=== PATIENT | male | born 1985 | race Caucasian/White ===

== ENCOUNTER 2019-01-21 11:27 | Emergency (ER) | payer OTHER, SELFPAY ==
[2019-01-21 11:27] VITALS: BP 109/89; PULSE 100; RESP 16; TEMP 36.7; O2SAT 97; BMI 29.8
--- NOTE | 2019-01-21 11:40 | CT_ITS ---
STUDY: CT LUMBAR SPINE WITHOUT CONTRAST REASON FOR EXAM: Male, 33 years old. Worsening back pain. History of back surgery. RADIATION DOSAGE (If Supplied By Facility): CTDIvol = ( 23.34 ) mGy, DLP = ( 1415.62 ) mGycm TECHNIQUE: The patient was scanned in a multi detector CT scanner. High resolution transaxial imaging was performed. Images were obtained from T12 to the lower sacrum. Sagittal and coronal images were reconstructed. Individualized dose optimization techniques were used for this CT. COMPARISON: None FINDINGS: Normal lumbar lordosis. There is no substantial scoliosis. Normal vertebrae of the lumbar spine. There is a nonspecific sclerotic lesion in the right L5 pedicle, likely bone I island. There is no osseous destruction. L1-2: Normal endplates. Normal disc height and morphology. Normal bilateral facet joints. Normal central canal and bilateral lateral recesses. Normal bilateral intervertebral neural foramina. L2-3: Normal endplates. Normal disc height and morphology. Normal bilateral facet joints. Normal central canal and bilateral lateral recesses. Normal bilateral intervertebral neural foramina. L3-4: Normal endplates. Normal disc height and morphology. Normal bilateral facet joints. Normal central canal and bilateral lateral recesses. Normal bilateral intervertebral neural foramina. L4-5: Normal endplates. Normal disc height and morphology. Normal bilateral facet joints. Normal central canal and bilateral lateral recesses. Normal bilateral intervertebral neural foramina. L5-S1: Normal endplates. Normal disc height and morphology. Normal bilateral facet joints. Normal central canal and bilateral lateral recesses. Normal bilateral intervertebral neural foramina. Normal visualized paraspinous soft tissue structures. CT/Spine Lumbar without Contrast IMPRESSION: Normal unenhanced CT examination of the lumbar spine. Electronically Signed: Elana Brennan, at 12:18 EDT Tel , Service support ,
[2019-01-21] MEDS: Ketorolac 30 MG/ML Syringe IM (11:49)
--- NOTE | 2019-01-21 12:36 | ED.VIS.BACK ---
History of Present Illness Chief Complaint: Back Narrative: Patient presenting for evaluation secondary to back pain. Patient reports that he had back surgery performed at [facility] in August 2017. Patient states that since then he has had intermittent bouts with back pain. He reports that over the course of the last couple of days he has had an exacerbation that was not associated with any sort of injury or increased activity. Patient states that the pain is in his lower back, predominantly on the right and radiates down to the level of his right thigh. He reports that he chronically has numbness in his right heel after his surgery that is unchanged. He denies any recent surgeries, injections, history of IV drug abuse, fevers, night sweats, or unintended weight loss. He denies any bowel or bladder incontinence. He denies any presence of fevers. Patient reports that he has been taking muscle relaxants that really have not been alleviating his pain. Review of systems otherwise negative. Past Medical History - Allergies and Home Meds Allergies/Adverse Reactions: Allergies migraine meds Allergy (Uncoded 01/21/19 11:29) Unknown Primary Care Physician: Brandon Berg MD [Primary Care Provider] - Smoking Status: Never smoker Review of Systems All systems negative except as indicated Musculoskeletal: Reports: - - Back pain Physical Exam Vital Signs/Narrative: Vital Signs Temp Pulse Resp BP Pulse Ox 01/21/19 11:27 98.1 F 100 16 109/89 H 97 General: Well nourished, Well developed Head: Normocephalic, Atraumatic ENT: Moist mucous membranes, No rhinorrhea Neck: Supple, Nontender Cardiovascular: Regular rate, Regular rhythm, No murmurs Respiratory: No distress, CTA bilaterally, Chest nontender Abdomen: Soft, Nontender, Nondistended, Normal bowel sounds. Negative for: No masses, Pulsatile mass Back: - - Midline lumbar surgical scar that is well-healed. Normal range of motion of the back. Some reproducible tenderness to palpation both in the midline and at the right SI joint. Extremeties: Nontender, No edema Skin: Normal color, No rash Neuro: - - 5 out of 5 strength at the hip knee ankle and foot bilaterally. Normal sensation over all dermatomes except for some decreased sensation of the patient's right heel which he states is baseline. 1+ patellar and Achilles reflexes bilaterally symmetric, negative clonus Psychological: Normal affect Diagnostic/Tx/Re-eval - Medical Decision Making Patient presented secondary to back pain. Physical exam showed no lateralizing neurologic signs. Patient does complain of some radiation to the leg and has a history of surgery so I did perform a CT of the back which shows no acute pathology per radiology. Patient was given a dose of Toradol had improvement. I believe the patient would benefit from a course of anti-inflammatories. Patient will be sent home with a course of Mobic, and instructions to follow-up with his spine surgeon should he not have improvement. All questions were answered and the patient was discharged. ED Disposition - Plan for ED Patient: Disposition: Home or Assisted Living Diagnosis: Lumbar radiculopathy Instructions: BACK PAIN (Acute or Chronic) Prescriptions: Meloxicam [Mobic] 15 mg PO DAILY #30 tab Prescription Printed Additional Instructions: Follow-up with your spine surgeon if not improved
== END 2019-01-21 14:25 | disposition home or self-care (01) ==
PROVIDERS: Emergency Provider Emergency Medicine; Family Provider Family Medicine; PCP Family Medicine
DX: M54.16 Radiculopathy, lumbar region (principal)
CPT/HCPCS: 72131; 96372; 99282

== ENCOUNTER 2020-03-18 16:58 | Emergency (ER) | payer OTHER, SELFPAY ==
[2020-03-18 16:58] VITALS: BP 129/82; PULSE 92; RESP 16; TEMP 35.6; O2SAT 98; BMI 31.4
--- NOTE | 2020-03-18 17:15 | ED.DCSUM_ITS ---
- ER Visit Summary Date of Service: 03/18/20 Chief Complaint: Back pain History of Present Illness: The patient is a 34 M who presents with back pain. He describes a tightness in his lumbar spine area. He states his pain is been ongoing for 3 days. He denies any falls or injury. He has a history of back pain and has had back surgeries previously. He states the pain radiates down his right leg and it feels like a cramping sensation. He took nothing for this at home. He has been using heating pads and ice. Physical Examination: Vital signs reviewed. HEENT exam unremarkable. Heart is regular rate and rhythm without murmurs. Lungs are clear to auscultation. Abdomen is soft and nontender. Back is tender in the lumbar spine area. Extremities reveal no edema. Skin exam normal. Neurologic exam normal. Test Results: None performed Emergency Department Course and Treatment: The patient does have a history of back pain with new back pain. He states he was on Neurontin at one time. I will give him a prescription for Neurontin, naproxen and prednisone. He is having some pain radiating down the right leg into the calf. He has no swelling. I do not feel this represents DVT. I do not feel he needs an ultrasound. Patient will follow-up with his doctor. Treatment Plan: [] Disposition: Discharge Impression: Lumbar back pain This note was generated with [employer] dictation software. It may contain incorrect words, spelling, and punctuation that were not noted in review of the chart prior to signing ED Disposition - Plan for ED Patient: Disposition: Home or Assisted Living Instructions: ED Neck Back Pain General Prescriptions: Prednisone [Deltasone] 40 mg PO DAILY #10 tab Prescription Printed Naproxen [Naprosyn] 500 mg PO BID PRN #20 tab Prescription Printed Gabapentin [Neurontin] 100 mg PO TIDCM #30 cap Prescription Printed Referrals: Brandon Berg MD [Primary Care Provider] -
[2020-03-18] MEDS: Ketorolac 60 MG/2 ML Vial IM (17:38)
== END 2020-03-18 17:39 | disposition home or self-care (01) ==
LOC: ED 17:34
PROVIDERS: Emergency Provider Emergency Medicine; PCP Family Medicine
DX: M54.5 Low back pain (principal)
CPT/HCPCS: 96372; 99282

== ENCOUNTER 2020-05-04 11:03 | Emergency (ER) | payer OTHER, SELFPAY ==
[2020-05-04 11:04] VITALS: BP 140/82; PULSE 92; RESP 16; TEMP 36.1; O2SAT 100; BMI 31.4
--- NOTE | 2020-05-04 11:20 | ED.VIS.GEN ---
History of Present Illness Chief Complaint: Back Informant: Patient Onset: Days Context: Gradual Onset Timing: Intermittent Current Severity: Moderate Maximum Severity: Moderate Narrative: Patient is a 34-year-old male with medical history significant for prior back pain that presents to the emergency department with increasing low back pain. Patient had prior lumbar surgery in 2018. He states since that time, he does get some numbness in his heel. He states he will also get pain across his back. He states this is not atypical for him. He has had pain intermittently for the past 2 weeks. He did see his primary care and he was started on a prednisone burst with taper. He states usually it helps his pain, but it has not. He is scheduled for an MRI in 7 days. He states that sometimes, the pain gets rather severe and is not helped with Motrin or Tylenol. He denies any trouble urinating or moving his bowels. He denies any fevers or chills. He denies any other systemic complaints. He states the bulk of the pain is in his back, but will sometimes radiate to his leg. Prior similar symptoms: Yes Recent Illness/Hospitalization: No Past Medical History - Allergies and Home Meds Allergies/Adverse Reactions: Allergies migraine meds Allergy (Uncoded 05/04/20 11:03) Unknown Primary Care Physician: Brandon Berg MD [Primary Care Provider] - Prior records reviewed: Yes Past Medical History: None Surgical History: - - Prior lumbar surgery Smoking Status: Never smoker Review of Systems General: Denies: Chills, Fever, Sweats Eyes: Denies: Visual changes - bilaterally, Diplopia ENT: Denies: Rhinorrhea, Sore throat Cardiovascular: Denies: Chest pain, Palpitations Respiratory: Denies: Dyspnea, Cough, Dyspnea on exertion Gastrointestinal: Denies: Abdominal pain, Nausea, Vomiting, Diarrhea, Melena, Hematochezia Genitourinary: Denies: Dysuria, Hematuria, Frequency Musculoskeletal: Reports: Back pain. Denies: Extremity Pain Skin: Denies: Rash, Wounds Neurological: Denies: Headache, Weakness, Numbness Physical Exam Vital Signs/Narrative: Vital Signs Temp Pulse Resp BP Pulse Ox 05/04/20 11:04 97 F L 92 16 140/82 H 100 Inital Vital Signs reviewed: Yes General: Well nourished, Well developed, No Acute Distress Head: Normocephalic, Atraumatic Eyes: Perrl, EOMI ENT: Moist mucous membranes, No rhinorrhea Neck: Supple, Nontender Cardiovascular: Regular rate, Regular rhythm, No murmurs Respiratory: No distress, CTA bilaterally, Chest nontender Abdomen: Soft, Nontender, Nondistended, Normal bowel sounds Back: Normal Inspection. Negative for: CVA tenderness, Spinal tenderness Extremities: Nontender, No edema Skin: Normal color, No rash Neurological: Alert, Oriented x3, Cranial nerves II-XII grossly intact, Normal Strength, Normal Sensation Psychological: Normal affect, Normal Mood Diagnostic/Tx/Re-eval - Medical Decision Making The patient has normal reflexes bilaterally of his lower extremities. He has normal pulses. There is no appreciable weakness. He has no red flag symptoms. He has had no trauma. He states the pain will wax and wane. I do not feel that imaging is necessary as he has no evidence of cauda equina, weakness, or other dangerous process. He has outpatient follow-up in place with the spine surgeon. I will give him a short course of analgesics and antiemetics to help control his pain. He is comfortable with this plan of care. Impression 1. Lumbar back pain with sciatica ED Disposition - Plan for ED Patient: Instructions: ED LUMBAR RADICULOPATHY Prescriptions: Hydrocodone Bitart/Apap 5-325 [[place] 5MG-325MG] 1 tab PO Q6H PRN PRN 3 Days #10 tab PRN Reason: Pain Prescription Printed Ondansetron [Zofran Odt] 4 mg PO Q8H PRN PRN #10 tab PRN Reason: Nausea Prescription Printed Referrals: Brandon Berg MD [Primary Care Provider] -
[2020-05-04] MEDS: oxyCODONE 5 MG Tablet PO (11:30)
== END 2020-05-04 11:36 | disposition home or self-care (01) ==
LOC: ED 11:35
PROVIDERS: Emergency Provider Emergency Medicine; PCP Family Medicine
DX: M54.40 Lumbago with sciatica, unspecified side (principal)
CPT/HCPCS: 99281

== ENCOUNTER 2020-08-22 10:23 | Emergency (ER) | payer OTHER, SELFPAY ==
[2020-08-22 10:24] VITALS: BP 145/96; PULSE 108; RESP 18; TEMP 36.4; O2SAT 98; BMI 33.5
--- NOTE | 2020-08-22 10:38 | ED.DCSUM_ITS ---
History of Present Illness Chief Complaint: Back Informant: Patient Onset: Days - 8 days Context: Gradual Onset Timing: Waxes and wanes Current Severity: Moderate Maximum Severity: Moderate Narrative: Patient presents secondary to left-sided back pain. He has a history of back pain having prior back surgery in 2018. He states typically his back pain is right-sided with some radiation down his right leg. He has had numbness in his right heel since his surgery. Patient has recently started seeing a spine surgeon in [place]. He had injections 3 weeks ago. 8 days ago patient states he was helping his daughter rearrange her room and move her bed. That night he noted some tightness in his left lower back. He woke the next morning with spasm in his left back and it has persisted for the past week. Pain does not radiate down his leg. He has no problems with bowel or bladder control. There is no trauma or fall. He has tried Tylenol and ibuprofen as well as some Flexeril that he had left from previous. He did speak with his spine surgeon late last week and they are supposed to be scheduling an appointment for him to be seen. - Past Medical History (1) Chronic back pain Status: Chronic Past Medical History - Allergies and Home Meds Allergies/Adverse Reactions: Allergies amitriptyline Allergy (Verified 08/22/20 10:26) Nausea/Vom/Diarrhea migraine meds Allergy (Uncoded 08/22/20 10:24) Unknown Primary Care Physician: Brandon Berg MD [Primary Care Provider] - Prior records reviewed: Yes Surgical History: - - Prior lumbar surgery Lives: With Family Smoking Status: Never smoker Review of Systems General: Denies: Chills, Fever Eyes: Denies: Visual changes - bilaterally ENT: Denies: Bilateral ear pain Cardiovascular: Denies: Chest pain Respiratory: Denies: Dyspnea, Cough Gastrointestinal: Denies: Abdominal pain, Vomiting, Diarrhea Genitourinary: Denies: Dysuria Musculoskeletal: Reports: Back pain. Denies: Extremity Pain Neurological: Denies: Headache Hematologic: Denies: Easy bruising, Easy bleeding Allergy: Denies: Uticaria Physical Exam Vital Signs/Narrative: Vital Signs Temp Pulse Resp BP Pulse Ox 08/22/20 10:24 97.6 F L 108 H 18 145/96 H 98 Inital Vital Signs reviewed: Yes General: Well nourished, Well developed Head: Normocephalic ENT: Moist mucous membranes Neck: Supple Cardiovascular: Regular rate, Regular rhythm Respiratory: No distress, CTA bilaterally Abdomen: Soft, Nontender Back: Normal Inspection, - - No midline thoracic or lumbar tenderness. Reproducible tenderness in the left lower lumbar paraspinals. Extremities: Nontender Skin: Normal color, No rash Neurological: Alert, Oriented x3, Normal Strength, Normal Sensation, - - Patient able to stand at bedside without difficulty. He is able to raise on tiptoes and heels without difficulty. Normal sensation and equal distal pulses. Psychological: Normal affect Diagnostic/Tx/Re-eval - Medical Decision Making I did review patient's prior records available here. [facility] report was performed. He is on had 3 prescriptions in the past year, most recent from May 2020. Patient be written for naproxen, [place], and Norflex. He is to follow-up with his surgeon this week as planned. ED Disposition - Plan for ED Patient: Disposition: Home or Assisted Living Diagnosis: Strain of lumbar paraspinal muscle Instructions: ED Back Spasm, No Trauma Prescriptions: Naproxen [Naprosyn] 500 mg PO BID PRN PRN #20 tab PRN Reason: Pain Score 4-10 Transmission Status: Pending to [facility]30 Hydrocodone Bitart/Apap 5-325 [[place] 5MG-325MG] 1 tablet PO Q6H PRN PRN 3 Days #10 tablet PRN Reason: Pain Transmission Status: Sent to [facility] Orphenadrine [Norflex ER] 100 mg PO BID PRN #14 tab PRN Reason: Spasms Transmission Status: Pending to [facility]30 Referrals: Brandon Berg MD [Primary Care Provider] - Additional Instructions: Follow-up with your spine surgeon this week as discussed.
[2020-08-22] MEDS: Orphenadrine 100 MG Tablet PO (10:42)
[2020-08-22] MEDS: HYDROcodone Bitartrate/Apap 5/325 Tablet PO (10:42)
[2020-08-22] MEDS: Naproxen 500 MG Tablet PO (10:42)
[2020-08-22 11:02] VITALS: RESP 15
== END 2020-08-22 11:02 | disposition home or self-care (01) ==
LOC: ED 10:54
PROVIDERS: Emergency Provider Emergency Medicine; PCP Family Medicine
DX: S39.012A Strain of muscle, fascia and tendon of lower back, initial encounter (principal); X58.XXXA Exposure to other specified factors, initial encounter
CPT/HCPCS: 99282

== ENCOUNTER 2020-12-26 08:13 | Emergency (ER) | payer BC, SELFPAY ==
[2020-12-26 08:14] VITALS: BP 127/95; PULSE 85; RESP 16; TEMP 36.5; O2SAT 97; BMI 32.1
--- NOTE | 2020-12-26 08:28 | EDS_ITS ---
HPI History of Present Illness Chief Complaint: Dental Informant: patient Onset/Context/Timing Onset: - (Has been an issue for a long time but became worse with regards to pain and some facial swelling overnight) Context: Gradual Onset Timing: Continuous Quality: Sore Location: Maxillary incisor Current Severity: Moderate Maximum Severity: Moderate Worsened by: Eating Relieved by: NSAIDs Associated Symptoms Assocated Symptom - Dental: face swelling; Negative for fever Narrative Narrative: History of poor dentition, this particular tooth started bothering him more with a little bit of swelling in his face above the affected tooth overnight. States he is looking for a dentist because his dental insurance just changed through work. [facility] Medical History Back pain Home Medications naproxen 500 mg PO BID PRN PRN #20 tab 08/22/20 [Rx Last Taken Unknown] orphenadrine citrate 100 mg PO BID PRN #14 tab 08/22/20 [Rx Last Taken Unknown] amoxicillin 875 mg PO BID #20 tab 12/26/20 [Rx Last Taken Unknown] Allergy/AdvReac Type Severity Reaction Status Date / Time amitriptyline Allergy Nausea/Vom/ Verified 12/26/20 08:15 Diarrhea migraine meds Allergy Unknown Uncoded 12/26/20 08:15 Social History Smoking Status: Never smoker ROS ROS ED Constitutional Constitutional ED: Denies chills or fever(s) Eyes Eyes: Denies change in vision or double vision ENT ENT ED: Reports dental pain; Denies sinus pain or throat swelling Cardiovascular Cardiovascular: Denies chest pain or palpitations Respiratory/Chest Respiratory/Chest: Denies cough or dyspnea Integumentary Denies abscess or rash Neurologic Neurologic: Denies headache(s), paresthesias or weakness EXAM Physical Exam Const Vital Signs: 12/26/20 08:14 Temperature 97.7 F L Temperature Source Oral Pulse Rate 85 Respiratory Rate 16 Blood Pressure 127/95 H Blood Pressure Mean 105 Pulse Ox 97 Oxygen Delivery Method Room Air Positive well nourished and well developed General Appearance ED: well developed and NAD HEENT HEENT Narrative: Multifocal dental decay. Tender tooth #8, without abscess but supraperiosteal gingival tenderness with associated very mild facial swelling without focal collection or fluctuance. The affected tooth has clear cavity/defect. No bleeding. No necrotic gingiva. Face and Sinus: sinuses nontender Throat: posterior oropharynx normal Eyes PERRL and EOMs intact bilaterally Neck no lymphadenopathy and supple Resp normal respiratory effort Neuro oriented x3 and CN's II-XII intact bilaterally Sensorium / Orientation: alert Gait (Neuro): normal gait Psych mental status grossly normal and thought process normal Skin no rashes or lesions noted and no wounds MDM MDM MDM Narrative Medical decision making narrative: A temporary filling was placed within the cavity of the affected tooth. Tolerated well. He was given a prescription for amoxicillin, there is no drainable collection at this time. Dental resource list given, follow-up advised and discussed reasons to return. Discharge Plan Triage Chief Complaint: Dental ED Provider: Jonatan French Dx/Rx/DC Orders Clinical Impression: Infected dental caries Instructions: ED Dental Cavity Prescriptions: New amoxicillin 875 mg tablet 875 mg PO BID Qty: 20 RF: 0 No Action naproxen 500 MG tablet 500 mg PO BID PRN PRN (Reason: Pain Score 4-10) Qty: 20 RF: 0 orphenadrine citrate 100 MG tablet 100 mg PO BID PRN (Reason: Spasms) Qty: 14 RF: 0 Primary Care Provider: Brandon Berg Referrals: Brandon Berg MD [Primary Care Provider] - Dentist,Your [STAFF PHYSICIAN] - As soon as possible (see attached resource list as needed) Disposition Disposition: Home, self care
== END 2020-12-26 08:37 | disposition home or self-care (01) ==
LOC: ED 08:33
PROVIDERS: Emergency Provider Emergency Medicine; PCP Family Medicine
DX: K02.9 Dental caries, unspecified (principal); Z79.899 Other long term (current) drug therapy
CPT/HCPCS: 99282

== ENCOUNTER 2022-09-21 08:09 | Emergency (ER) | payer BC, SELFPAY ==
[2022-09-21 08:10] VITALS: BP 123/89; PULSE 88; RESP 18; TEMP 36.2; O2SAT 100; BMI 34.2
--- NOTE | 2022-09-21 08:40 | RAD_ITS ---
STUDY: X-RAY CHEST REASON FOR EXAM: Male, 37 years old. Chest pain TECHNIQUE: Single AP portable view of the chest. COMPARISON: None. FINDINGS: EKG electrodes are seen. The lungs are clear and expanded. There is no demonstrated pleural abnormality. Normal size heart. Normal mediastinum and boni. Normal visualized pulmonary arteries. Normal visualized aortic arch and descending thoracic aorta. Normal visualized thoracic spine. Normal visualized ribs, clavicles, and shoulders. There is no demonstrated abnormality of the visualized soft tissue structures of the upper abdomen. RAD/Chest 1 View (Portable) IMPRESSION: Normal x-ray examination of the chest. Electronically Signed: Aquiles Alba MD at 9:31 EST ,
--- NOTE | 2022-09-21 08:40 | EKG12_ITS ---
Test Reason : CP Blood Pressure : / mmHG Vent. Rate : 078 BPM Atrial Rate : 078 BPM P-R Int : 170 ms QRS Dur : 086 ms QT Int : 362 ms P-R-T Axes : 005 -14 -07 degrees QTc Int : 412 ms Normal sinus rhythm Minimal voltage criteria for LVH, may be normal variant ( R in aVL ) Borderline ECG Confirmed by MABLE CHAMBERLAIN, KENNEDY ([id number]), brands editor TRE PETERSON ([id number]) on 09/25/2022 11:02:03 AM Referred By: JULIO Confirmed By:KENNEDY AKINS MD
[2022-09-21 09:00] VITALS: BP 126/91; PULSE 85
[2022-09-21] MEDS: Mag Hydrox/Al Hydrox/Simeth 30 ML UDC PO (09:05)
[2022-09-21] MEDS: Aspirin 81 MG TAB.CHEW 324 MG PO (09:05)
[2022-09-21 09:11] LABS: Absolute Lymphocyte Count 1.67 X10^3/uL (0.83-4.51); Absolute Neutrophil Count 4.7 X10^3/uL (2.0-7.7); Basophil# 0.06 X10^3/uL; Basophil% 0.8 % (0-1); Eosinophil# 0.17 X10^3/uL; Eosinophils% 2.3 % (0-5); Hematocrit 46.5 % (40-54); Hemoglobin 15.2 g/dL (13.0-16.5); Lymphocyte # 1.67 X10^3/ul (0.83-4.51); Mean Corp Hgb Conc 32.7 g/dL (32-36); Mean Corpuscular Hgb 28.7 pg (27.0-32.0); Mean Corpuscular Volume 87.9 fL (80-94); Mean Platelet Vol. 9.2 fl (6.2-12.0); Monocyte# 0.68 X10^3/uL; Monocyte% 9.4 % (0-10); NRBC Flagged by Analyzer 0 % (0-5); Neutrophil # 4.66 X10^3/uL (2.7-7.7); Neutrophil % 64.1 % (47-70); Platelet Count 312 K/mm3 (150-450); RBC Distribution Width CV 12.9 % (11.6-14.6); RBC Distribution Width SD 41.5 fl (35.1-43.9); Red Blood Count 5.29 M/mm3 (4.6-6.2); White Blood Count 7.3 K/mm3 (4.4-11.0)
[2022-09-21 09:30] LABS: Anion Gap 5 (5-15); BUN 17 mg/dL (7-18); BUN/Creat Ratio 18.4 RATIO (10-20); Calcium,Total 9.2 mg/dL (8.5-10.1); Chloride 107 mmol/L (98-107); Creatinine, Serum 0.93 mg/dL (0.70-1.30); EST Glomerular Filtration Rate 97 mL/min (>60); Est Glom Filt Rate - Afr Amer 118 mL/min (>60); Glucose 108 mg/dL (74-106); Potassium 4.7 mmol/L (3.5-5.1); Sodium Level 138 mmol/L (136-145); Troponin-I HS 6 pg/mL (3.0-78.0)
[2022-09-21 10:10] VITALS: BP 119/82; PULSE 79; RESP 14; O2SAT 99
--- NOTE | 2022-09-21 10:59 | ED.VIS.CHEST ---
HPI History of Present Illness Chief Complaint: Chest Pain Informant: patient Onset/Context/Timing Onset: Weeks (1) Activity at onset: gradual Timing: Continuous Quality: Positive for Dull Location: Substernal and Right Chest Worsened By: Exertion (Lifting things) Relieved By: Nothing Associated Symptoms: Positive for Acid Reflux; Negative for Nausea, Vomiting, Diaphoresis, Dyspnea, Cough, Fever, Lightheadedness or Palpitations Narrative Narrative: Patient presents with chest pain that has been constant for the past week. Patient states it is gradually came on. Patient describes it as dull. Patient states it is over the substernal area and right chest. Patient states it is worse with lifting things and exertion. Patient states nothing seems to help with it. Patient has a history of acid reflux and is concerned that his chest pain may be from that. Patient denies any nausea or vomiting. Patient denies any shortness of breath or cough. Patient denies any diaphoresis. Patient denies any palpitations. CVD Risk Factors: Negative for Hypertension, Diabetes, Hypercholesterolemia, Family History 1' </=55 or Smoking PE Risk Factors: Negative for Recent Travel/Surgery, Recent Immobilization, Prior DVT or PE, Cancer or OCP + Smoking + >/=35 PFSH PFSH Medical History (Updated 09/21/22 @ 11:[address] Den Malloy DO) Back pain GERD (gastroesophageal reflux disease) Home Medications naproxen 500 mg tablet 500 mg PO BID PRN PRN Pain Score 4-10 #20 tabs 08/22/20 [Rx Last Taken Unknown] orphenadrine citrate 100 mg tablet,extended release 100 mg PO BID PRN Spasms #14 tabs 08/22/20 [Rx Last Taken Unknown] amoxicillin 875 mg tablet 875 mg PO BID #20 tabs 12/26/20 [Rx Last Taken Unknown] Allergy/AdvReac Type Severity Reaction Status Date / Time amitriptyline Allergy Nausea/Vom/ Verified 12/26/20 08:15 Diarrhea migraine meds Allergy Unknown Uncoded 12/26/20 08:15 Family History no significant family his no significant family history Surgical History (Updated 09/21/22 @ 11:[address] Den Malloy DO) History of back surgery Social History Smoking Status: Never smoker ROS ROS ED Constitutional Constitutional ED: Denies chills or fever(s) Eyes Eyes: Denies blurry vision or change in vision ENT ENT ED: Denies rhinorrhea or sore throat Cardiovascular Cardiovascular: Reports chest pain; Denies palpitations Respiratory/Chest Respiratory/Chest: Denies cough or dyspnea Gastrointestinal Gastrointestinal: Denies abdominal pain, nausea or vomiting Genitourinary Genitourinary ED: Denies dysuria or hematuria Musculoskeletal Musculoskeletal: Denies back pain or neck pain Integumentary Denies abscess or rash Neurologic Neurologic: Denies headache(s) or weakness Allergic/Immunologic Allergic/Immunologic ED: Denies mouth swelling or urticaria EXAM Physical Exam Const Vital Signs: 09/21/22 08:10 09/21/22 09:00 09/21/22 09:00 Temperature 97.1 F L Temperature Source Temporal Pulse Rate 88 85 Respiratory Rate 18 Respiratory Effort Blood Pressure 123/89 H 126/91 H Blood Pressure Mean 100 102 Pulse Ox 100 Oxygen Delivery Method Room Air Room Air Room Air 09/21/22 09:00 09/21/22 10:10 Temperature Temperature Source Pulse Rate 79 Respiratory Rate 14 Respiratory Effort Normal Non-Labored Blood Pressure 119/82 H Blood Pressure Mean 94 Pulse Ox 99 Oxygen Delivery Method Room Air Positive well nourished, well developed and obese General Appearance ED: well developed and NAD Nutritional Appearance: obese HEENT normocephalic and atraumatic Eyes PERRL and EOMs intact bilaterally Neck supple and no JVD Chest Wall inspection of chest normal Chest: tenderness sternum (Mild) Resp normal respiratory effort and clear to auscultation bilaterally Effort and Inspection: Negative for respiratory distress Cardio regular rate, regular rhythm and no murmurs GI normal to inspection, nondistended, normoactive bowel sounds, soft to palpation, non-tender and non-distended Extremity normal to inspection General Extremety ED: Negative for edema or tenderness General Extremity: Negative for edema Neuro oriented x3, CN's II-XII intact bilaterally and no sensory deficits noted Sensorium / Orientation: awake and alert Motor Exam: strength 5/5 throughout Psych mental status grossly normal Heart Score History: Slightly/Non-Suspicious ECG: Normal Age: </= 45 years Risk Factors: No Risk Factors Troponin: </= Normal Limit Score: 0 MDM MDM MDM Narrative Medical decision making narrative: Differential diagnosis includes cardiac ischemia, cardiac dysrhythmia, pneumonia, pneumothorax, GERD, esophagitis, pericarditis, and gastritis. EKG will be obtained to assess for cardiac dysrhythmia and cardiac ischemia. Chest x-ray will be obtained to assess for pneumonia and pneumothorax. CBC will be obtained to assess for leukocytosis and anemia. Basic metabolic profile will be obtained to assess for electrolyte abnormality and renal function. High-sensitivity troponin will be obtained to assess for cardiac ischemia. Lab Data Attestation: I reviewed the patient's lab results. Lab results narrative: CBC was reviewed and was within normal limits. Basic metabolic profile was reviewed and was within normal limits. High-sensitivity troponin was reviewed and was within normal limits. Labs: Laboratory Results - last 24 hr 09/21/22 09/21/22 09:00 09:00 WBC 7.3 RBC 5.29 Hgb 15.2 Hct 46.5 MCV 87.9 MCH 28.7 MCHC 32.7 RDW Std Deviation 41.5 RDW Coeff of [place]issa 12.9 Plt Count 312 MPV 9.2 Immature Gran % (Auto) 0.400 Neut % (Auto) 64.1 Lymph % (Auto) 23.0 [place] % (Auto) 9.4 Eos % (Auto) 2.3 Baso % (Auto) 0.8 Absolute Neuts (auto) 4.7 Absolute Lymphs (auto) 1.67 Nucleated RBC % 0 Sodium 138 Potassium 4.7 Chloride 107 Carbon Dioxide 26.0 Anion Gap 5 BUN 17 Creatinine 0.93 Estim Creat Clear Calc 114.70 Est GFR (MDRD) Af Amer 118 Est GFR (MDRD) Non-Af 97 BUN/Creatinine Ratio 18.4 Glucose 108 H Calcium 9.2 Troponin I High Sens 6 Radiography Chest X-Ray - ED: 1 View, Read by ED Physician, Read by Radiologist and No Acute Disease Diagnostic Testing: Clinical Impression(s) from Imaging Studies Chest X-Ray 09/21/22 08:40 IMPRESSION: Normal x-ray examination of the chest. Electronically Signed: Aquiles Alba MD at 9:31 EST , Portable 1 view chest x-ray was obtained. On my independent interpretation, lung benavides are clear. There is normal cardiac silhouette. Bony thorax is normal. There is no acute process noted. Radiologist also interpreted the x-ray and agrees. EKG Initial EKG: Attestation: I personally reviewed and interpreted this EKG as follows: Interpretation: Sinus Rhythm (78) and No Acute Injury Pattern Comments: EKG was obtained. On my independent interpretation, it showed a normal sinus rhythm with a rate of 78. [place] interval, QRS interval, and QTc intervals were all normal. [place] was normal. There are no acute ST or T wave changes. Prior EKG tracings: not available for review Prior: No Prior Differential Diagnosis Chest pain/SOB: pulmonary embolism Reason(s) PE less likely: Positive for PERC negative, Well's <3, not tachycardic and not hypoxic, ACS ACS: Positive for no evidence of ACS based on cardiac biomarkers and EKG without ischemia, pneumothorax Reason(s) pneumothorax less likely: Positive for bilateral breath sounds and [employer] withhout PTX, pneumonia Reason(s) pneumonia less likely: Positive for no infiltrate on CXR, no elevation in WBC count, no noted fever and symptoms not consistent with acute infection and aortic dissection Reason(s) Aortic dissection less likely:: Positive for normal vascular exam, no history of HTN, normal neurological exam, no significant risk factors for dissection, no widened mediastinum on CXR, no ripping/tearing pain and blood pressure appropriate in ED Treatment and Re-Evaluation :: Patient was given a GI cocktail here. Patient was advised of his findings. Patient has a HEART score of 0. Patient was advised that this is low risk for acute cardiac event. Patient was instructed to follow-up with his primary care physician in 5 to 7 days. Patient was given a prescription for omeprazole. Patient was instructed to follow-up with his primary care physician in 5 to 7 days. Patient understood and was agreeable with the plan. All questions were answered. Discharge Plan Triage Chief Complaint: Chest Pain ED Provider: Den Malloy Dx/Rx/DC Orders Clinical Impression: Chest pain, GERD (gastroesophageal reflux disease) Instructions: ED Chest Pain, Uncertain Cause, ED GERD (Adult) Prescriptions: No Action naproxen 500 MG tablet 500 mg PO BID PRN PRN (Reason: Pain Score 4-10) Qty: 20 0RF orphenadrine citrate 100 MG tablet 100 mg PO BID PRN (Reason: Spasms) Qty: 14 0RF amoxicillin 875 mg tablet 875 mg PO BID Qty: 20 0RF Primary Care Provider: Brandon Berg Referrals: Brandon Berg MD [Primary Care Provider] - 5-7 Days
== END 2022-09-21 11:43 | disposition home or self-care (01) ==
PROVIDERS: Emergency Provider Emergency Medicine; PCP Family Medicine; Visit Provider Emergency Medicine
DX: R07.9 Chest pain, unspecified (principal); K21.9 Gastro-esophageal reflux disease without esophagitis; E66.9 Obesity, unspecified
CPT/HCPCS: 71045; 80048; 84484; 85025; 93005; 99285; A4216